=== PATIENT | female | born 1985 | race Caucasian/White ===

== ENCOUNTER 2017-04-29 11:10 | Outpatient (CLI) | payer MEDICAID ==
[~2017-04-29] VITALS: Ht 154.9 cm; Wt 51.8 kg
[~2017-04-29 11:10] MED LIST: DOCU-30 PO; IBUP-1222 PO; OXYC-302 PO
[2017-04-29 12:03] VITALS: BP 103/65
[2017-04-29] MEDS ORDERED: LACTATED RINGERS 1,000 ML IVBOLUS ONE (13:00)
== END 2017-04-29 14:48 | disposition home or self-care (01) ==
LOC: LDOP 11:10
PROVIDERS: ATTEND Specialist
DX: O46.93 Antepartum hemorrhage, unspecified, third trimester (principal); O99.343 Other mental disorders complicating pregnancy, third trimester; F32.9 Major depressive disorder, single episode, unspecified; Z3A.30 30 weeks gestation of pregnancy
CPT/HCPCS: 36415; 59025; 81001; 82731; 96360; 99211; J7120; G0463

== ENCOUNTER 2017-05-21 10:08 | Outpatient (CLI) | payer MEDICAID ==
[~2017-05-21] VITALS: Ht 154.9 cm; Wt 51.4 kg
[2017-05-21 10:29] VITALS: BP 103/58
[2017-05-21] MEDS ORDERED: PREN1TAB60 PO (11:08)
[2017-05-21] MEDS ORDERED: ONDA4TAB7 PO (11:08)
[2017-05-21] MEDS ORDERED: SERT50TA5 PO (11:08)
[2017-05-21] MEDS ORDERED: HYDR25CA PO (11:08)
== END 2017-05-21 11:30 | disposition home or self-care (01) ==
LOC: LDOP 10:08
PROVIDERS: ATTEND Specialist
DX: O36.8130 Decreased fetal movements, third trimester, not applicable or unspecified (principal); O26.893 Other specified pregnancy related conditions, third trimester; O99.343 Other mental disorders complicating pregnancy, third trimester; R10.9 Unspecified abdominal pain; F32.9 Major depressive disorder, single episode, unspecified; Z3A.31 31 weeks gestation of pregnancy
CPT/HCPCS: 59025; 99211; G0463

== ENCOUNTER 2017-07-01 11:10 | Outpatient (CLI) | payer MEDICAID ==
[~2017-07-01] VITALS: Ht 154.9 cm; Wt 55.9 kg
[~2017-07-01 11:10] MED LIST changes: +DOCU-131 PO; -DOCU-30 PO; +HYDR25CA PO; +ONDA4TAB7 PO; +PREN1TAB60 PO; +SERT50TA5 PO
[2017-07-01 11:20] VITALS: BP 106/67
[2017-07-01] MEDS ORDERED: ONDANSETRON 2MG/ML, 2ML ONE (12:37)
[2017-07-01] MEDS ORDERED: D5%-LACTATED RINGERS 1,000 ML IV SCH (13:00)
[2017-07-01] MEDS ORDERED: ONDANSETRON 2MG/ML, 2ML IVPush ONE (13:00)
== END 2017-07-01 15:00 | disposition home or self-care (01) ==
LOC: LDOP 11:10
PROVIDERS: ATTEND Student in an Organized Health Care Education/Training Program
DX: O26.893 Other specified pregnancy related conditions, third trimester (principal); O62.9 Abnormality of forces of labor, unspecified; O21.9 Vomiting of pregnancy, unspecified; O99.343 Other mental disorders complicating pregnancy, third trimester; F32.9 Major depressive disorder, single episode, unspecified; Z3A.37 37 weeks gestation of pregnancy
CPT/HCPCS: 81001; 87086; 87147; J2405; J7121

== ENCOUNTER → 2018-07-19 | Outpatient (CLI) | payer MEDICAID | END | disposition home or self-care (01) | LOC: PETCFH 10:20 | PROVIDERS: ATTEND Internal Medicine Gastroenterology | DX: R10.9 Unspecified abdominal pain (principal); R11.2 Nausea with vomiting, unspecified; R19.4 Change in bowel habit; K52.9 Noninfective gastroenteritis and colitis, unspecified; F43.29 Adjustment disorder with other symptoms; R14.0 Abdominal distension (gaseous); F41.9 Anxiety disorder, unspecified; F34.1 Dysthymic disorder; E55.9 Vitamin D deficiency, unspecified; N80.9 Endometriosis, unspecified | CPT/HCPCS: 78264; A9541 ==

== ENCOUNTER 2021-02-23 18:46 | Outpatient (CLI) | payer MEDICAID ==
[~2021-02-23 18:46] MED LIST changes: -OXYC-302 PO; +OXYC1TAB14 PO; +SERT50TA28 PO; -SERT50TA5 PO
[2021-02-23 20:25] LABS: MICROSCOPIC INDICATED
[2021-02-23] MEDS ORDERED: OXYcodone/APAP 5/325MG TABLET PO ONE (21:30)
[2021-02-23] MEDS ORDERED: OXYcodone/APAP 5/325MG TABLET ONE (21:37)
== END 2021-02-23 22:35 | disposition home or self-care (01) ==
LOC: LDOP 18:46
PROVIDERS: ATTEND Obstetrics & Gynecology
DX: O09.90 Supervision of high risk pregnancy, unspecified, unspecified trimester (principal); O26.899 Other specified pregnancy related conditions, unspecified trimester; M54.5 Low back pain; R25.2 Cramp and spasm
CPT/HCPCS: 59025; 81001

== ENCOUNTER 2021-03-17 14:08 | Emergency (ER) | payer MEDICAID ==
[~2021-03-17] VITALS: Ht 154.9 cm; Wt 62.3 kg
[2021-03-17 14:36] VITALS: BP 113/77
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
--- NOTE | 2021-03-17 14:57 | NUR ---
PT DISCHAGED IN WHEELCHAIR TO L AND D FOR OBSERVATION. NO QUESTIONS AT TIME OF DISCHAGRE Patient given discharge instructions and they have confirmed that they understand the instructions.
== END 2021-03-17 15:00 | disposition home or self-care (01) ==
LOC: ED 14:40
DX: O9A.213 Injury, poisoning and certain other consequences of external causes complicating pregnancy, third trimester (principal); Z3A.36 36 weeks gestation of pregnancy; Z88.1 Allergy status to other antibiotic agents; V49.49XA Driver injured in collision with other motor vehicles in traffic accident, initial encounter; Y93.89 Activity, other specified; Y92.410 Unspecified street and highway as the place of occurrence of the external cause; Y99.8 Other external cause status
CPT/HCPCS: 99283

== ENCOUNTER 2021-03-17 15:11 | Outpatient (CLI) | payer MEDICAID ==
[~2021-03-17] VITALS: Ht 154.9 cm; Wt 62.3 kg
== END 2021-03-17 17:17 | disposition home or self-care (01) ==
LOC: LDOP 15:11
PROVIDERS: ATTEND Obstetrics & Gynecology
DX: O09.93 Supervision of high risk pregnancy, unspecified, third trimester (principal); Z3A.36 36 weeks gestation of pregnancy
CPT/HCPCS: 59025; 76819

== ENCOUNTER 2021-04-02 13:53 | Inpatient (IN) | payer MEDICAID ==
[~2021-04-02] VITALS: Ht 154.9 cm; Wt 64.0 kg
[2021-04-02] MEDS ORDERED: TERBUTALINE 1 MG/ML, 1ML SQ PRN (15:00)
[2021-04-02] MEDS ORDERED: TERBUTALINE 1 MG/ML, 1ML IVPush PRN (15:00)
[2021-04-02 15:16] LABS: MEAN CORPUSCULAR HEMOGLOBIN 27.2 pg (27.0-34.8); MEAN PLATELET VOLUME 9.6 fL (7.4-10.4); PLATELET COUNT 237 x10^3/uL (130-400); RED BLOOD COUNT 4.41 x10^6/uL (3.82-5.3); RED CELL DISTRIBUTION WIDTH 13.5 % (9.6-15.2)
[2021-04-02] MEDS ORDERED: AMPICILLIN 2 GM in SODIUM CHLORIDE 0.9% 100 ML IVPB STA (15:49)
[2021-04-02] MEDS ORDERED: ALPR0.5T7 PO (16:04)
[2021-04-02] MEDS ORDERED: ESCI20TA10 PO (16:04)
[2021-04-02] MEDS ORDERED: OXYTOCIN 30U/ 0.9% NaCL 500ML 500 ML ONE (16:37)
[2021-04-02] MEDS ORDERED: MISOPROSTOL 200 MCG TABLET ONE (16:37)
[2021-04-02] MEDS ORDERED: LIDOCAINE 1%, 20ML ONE (16:37)
[2021-04-02] MEDS ORDERED: NEWBORN KIT ONE ×2 (16:37→20:12)
[2021-04-02] MEDS ORDERED: FENTANYL/BUPIV./NS/PF 250 ML EPIDCONT ONE (17:44)
[2021-04-02] MEDS ORDERED: BUPIVACAINE 0.25% ONE (17:44)
[2021-04-02] MEDS ORDERED: FENTANYL/BUPIV./NS/PF 250 ML EPIDCONT SCH (18:30)
[2021-04-02] MEDS ORDERED: LACTATED RINGERS 1,000 ML IVBOLUS PRN (18:30)
[2021-04-02] MEDS ORDERED: LACTATED RINGERS 1,000 ML IV SCH (18:30)
[2021-04-02] MEDS ORDERED: EPHEDRINE 50 MG/ML, 1ML IVPush PRN (18:30)
[2021-04-02] MEDS ORDERED: METOCLOPRAMIDE 5 MG/ML, 2ML ONE (19:51)
[2021-04-02] MEDS ORDERED: SODIUM CITRATE/CITRIC ACID 15 ML UDC ONE (19:52)
[2021-04-02] MEDS ORDERED: AMPICILLIN 1 GM in SODIUM CHLORIDE 0.9% 100 ML IVPB SCH (20:00)
[2021-04-02] MEDS ORDERED: LIDOCAINE/MPF 2%-EPI 1:200K, 20 ML ONE (20:09)
[2021-04-02] MEDS ORDERED: CEFAZOLIN 1,000 MG ONE (20:12)
[2021-04-02] MEDS ORDERED: ONDANSETRON 2MG/ML, 2ML ONE ×2 (20:12→21:21)
[2021-04-02] MEDS ORDERED: OXYTOCIN 10 UNITS/ML, 1ML ONE (20:12)
[2021-04-02] MEDS ORDERED: FENTANYL PF 100 MCG/2ML ONE ×2 (20:12→22:25)
[2021-04-02] MEDS ORDERED: HYDROmorphone 2 MG/ML, 1ML ONE (20:13)
[2021-04-02] MEDS ORDERED: MORPHINE SULFATE 4 MG/ML, 1ML IVPush PRN (21:30)
[2021-04-02] MEDS ORDERED: METHYLERGONOVINE 0.2 MG/ML IM PRN (21:30)
[2021-04-02] MEDS ORDERED: ONDANSETRON 2MG/ML, 2ML IV PRN (21:30)
[2021-04-02] MEDS ORDERED: MISOPROSTOL 200 MCG TABLET PR PRN (21:30)
[2021-04-02] MEDS ORDERED: BISACODYL 10 MG SUPP PR PRN (21:30)
[2021-04-02] MEDS ORDERED: morphine SULFATE 10 MG/ML, 1ML IVPush PRN (21:30)
[2021-04-02] MEDS ORDERED: ACETAMINOPHEN 325 MG TABLET PO PRN ×2 (21:30)
[2021-04-02] MEDS ORDERED: CARBOPROST TROMETHAMINE 250 MCG/ML, 1ML IM PRN (21:30)
[2021-04-02] MEDS ORDERED: OXYcodone/APAP 5/325MG TABLET PO PRN (21:30)
[2021-04-02] MEDS ORDERED: CALCIUM CARBONATE 500 MG TAB.CHEW PO PRN (21:30)
[2021-04-02] MEDS: LACTATED RINGERS 1,000 ML IV SCH ×3 (22:00→23:40)
[2021-04-02] MEDS: OXYTOCIN 30U/ 0.9% NaCL 500ML 500 ML IV SCH ×2 (22:00→23:40)
[2021-04-02] MEDS ORDERED: HYDROmorphone 1 MG/ML, 1ML INJ IVPush PRN (22:30)
[2021-04-02] MEDS ORDERED: ONDANSETRON 2MG/ML, 2ML IVPush PRN (22:30)
[2021-04-02] MEDS: FENTANYL PF 100 MCG/2ML IV PRN ×2 (22:33→23:02)
[2021-04-02 23:30] VITALS: BP 111/75
[2021-04-03] VITALS: BP 97/69
[2021-04-03] MEDS: IBUPROFEN 600 MG TABLET PO PRN ×4 (00:10→21:27)
[2021-04-03] MEDS: OXYcodone/APAP 5/325MG TABLET PO PRN ×6 (00:11→21:28)
[2021-04-03 02:43] VITALS: BP 111/69
[2021-04-03 04:40] LABS: MEAN CORPUSCULAR HEMOGLOBIN 27.4 pg (27.0-34.8); MEAN CORPUSCULAR HGB CONC 33.2 g/dL (32.4-35.8); PLATELET COUNT 131 x10^3/uL (130-400); RED BLOOD COUNT 3.41 x10^6/uL (3.82-5.3); RED CELL DISTRIBUTION WIDTH 13.6 % (9.6-15.2)
[2021-04-03 05:46] LABS: BAND#(MANUAL) 1.18 x10^3/uL; BANDS%(MANUAL) 6 % (0-7); LYMPH#(MANUAL) 1.97 x10^3/uL (1-3.4); LYMPHS% (MANUAL) 10 % (22-44); MONOS#(MANUAL) 0.39 x10^3/uL (0.3-2.7); MONOS% (MANUAL) 2 % (2-9); POLYCHROMASIA 1+; SEG#(MANUAL) 16.15 x10^3/uL (1.8-6.8); SEGS% (MANUAL) 82 % (42-75)
[2021-04-03 05:47] LABS: <PLATELET ESTIMATE> DECREASED; <PLT MORPHOLOGY> NORMAL PLT MORPH; ANISOCYTOSIS 1+
[2021-04-03] MEDS: LACTATED RINGERS 1,000 ML IV SCH ×4 (07:30→21:30)
[2021-04-03 08:00] VITALS: BP 100/68
[2021-04-03] MEDS: DOCUSATE 100 MG CAPSULE PO PRN ×2 (08:11→20:05)
[2021-04-03] MEDS: PRENATAL VIT/IRON/FA 1 EACH TABLET PO SCH (08:11)
[2021-04-03 12:00] VITALS: BP 97/69
[2021-04-03 16:30] VITALS: BP 97/63
[2021-04-03] MEDS: OXYTOCIN 30U/ 0.9% NaCL 500ML 500 ML IV SCH (17:30)
[2021-04-03 19:15] VITALS: BP 102/63
[2021-04-03] MEDS: SIMETHICONE 80 MG CHEW TAB PO PRN (21:27)
[2021-04-03] MEDS: ESCITALOPRAM 10MG TABLET PO SCH (21:28)
[2021-04-04] MEDS: OXYcodone/APAP 5/325MG TABLET PO PRN ×6 (01:53→22:42)
[2021-04-04] MEDS: LACTATED RINGERS 1,000 ML IV SCH ×6 (03:30→23:30)
[2021-04-04] MEDS: OXYTOCIN 30U/ 0.9% NaCL 500ML 500 ML IV SCH ×3 (03:30→23:30)
[2021-04-04] MEDS: IBUPROFEN 600 MG TABLET PO PRN ×3 (06:08→22:41)
[2021-04-04] MEDS: SIMETHICONE 80 MG CHEW TAB PO PRN ×2 (06:08→22:46)
[2021-04-04 08:30] VITALS: BP 105/72
[2021-04-04] MEDS: DOCUSATE 100 MG CAPSULE PO PRN ×2 (10:16→22:41)
[2021-04-04] MEDS: PRENATAL VIT/IRON/FA 1 EACH TABLET PO SCH (10:16)
[2021-04-04 20:08] VITALS: BP 105/70
[2021-04-05] MEDS: OXYcodone/APAP 5/325MG TABLET PO PRN ×5 (02:41→20:36)
[2021-04-05] MEDS: SIMETHICONE 80 MG CHEW TAB PO PRN ×2 (02:44→11:48)
[2021-04-05] MEDS: ESCITALOPRAM 10MG TABLET PO SCH ×2 (02:45→20:35)
[2021-04-05] MEDS: LACTATED RINGERS 1,000 ML IV SCH ×5 (05:30→21:30)
[2021-04-05] MEDS: IBUPROFEN 600 MG TABLET PO PRN ×3 (06:48→20:35)
[2021-04-05 07:47] VITALS: BP 113/75
[2021-04-05] MEDS: DOCUSATE 100 MG CAPSULE PO PRN ×2 (08:28→20:35)
[2021-04-05] MEDS: PRENATAL VIT/IRON/FA 1 EACH TABLET PO SCH (08:28)
[2021-04-05] MEDS: OXYTOCIN 30U/ 0.9% NaCL 500ML 500 ML IV SCH ×2 (09:30→19:30)
[2021-04-05 21:20] VITALS: BP 109/73
[2021-04-06] MEDS: OXYcodone/APAP 5/325MG TABLET PO PRN ×4 (01:04→15:00)
[2021-04-06] MEDS: IBUPROFEN 600 MG TABLET PO PRN ×3 (02:44→15:00)
[2021-04-06] MEDS: OXYTOCIN 30U/ 0.9% NaCL 500ML 500 ML IV SCH (05:30)
[2021-04-06] MEDS: LACTATED RINGERS 1,000 ML IV SCH ×2 (05:30)
[2021-04-06 07:24] VITALS: BP 111/73
[2021-04-06] MEDS: DOCUSATE 100 MG CAPSULE PO PRN (08:53)
[2021-04-06] MEDS: PRENATAL VIT/IRON/FA 1 EACH TABLET PO SCH (08:53)
[2021-04-06] MEDS: ESCITALOPRAM 10MG TABLET PO SCH (09:00)
[2021-04-06] MEDS ORDERED: FESO PO (13:57)
[2021-04-06] MEDS ORDERED: MEASLES,MUMPS&RUBELLA VACC/PF 0.5 ML SQ-VACC ONE (14:30)
== END 2021-04-06 16:10 | disposition home or self-care (01) | DRG 788 ==
LOC: LDOP 13:53 → LDIP 14:41 → 2NW 23:07
PROVIDERS: ADMIT Obstetrics & Gynecology; ATTEND Obstetrics & Gynecology
PROC: 10D00Z1 Extraction of Products of Conception, Low, Open Approach (ICD-10-PCS; principal; 2021-04-02)
DX: O77.0 Labor and delivery complicated by meconium in amniotic fluid (principal); O34.211 Maternal care for low transverse scar from previous cesarean delivery; O76 Abnormality in fetal heart rate and rhythm complicating labor and delivery; O99.824 Streptococcus B carrier state complicating childbirth; Z3A.39 39 weeks gestation of pregnancy; Z37.0 Single live birth; Z79.899 Other long term (current) drug therapy; Z20.822 Contact with and (suspected) exposure to COVID-19
CPT/HCPCS: 36415; 85025; 85027; 86592; 86762; 86850; 86900; 87340; 87635; 87806; 90707; G0378; J0290; J0690; J1170; J2405; J3010; G0475; J2590; J7120